=== PATIENT | female | born 1975 | race Caucasian/White ===

== ENCOUNTER 2024-01-23 12:31 | Emergency (ER) | payer BC, SELFPAY ==
[2024-01-23 12:39] VITALS: BP 134/87
--- NOTE | 2024-01-23 13:27 | ED.GENMED ---
History of Present Illness
General
Chief Complaint: Back Pain
Source: patient
Exam Limitations: none
Time Seen by Provider: 01/23/24 13:27
Nursing documentation reviewed up to this point in time: agreed with
History of Present Illness
History of Present Illness:
This is a 48-year-old female with past medical history of joint facet syndrome, herniated disc L5-S1 presents to the emergency department today with concerns of low back pain. Patient states that she has had chronic back pain and has been out of
work as a result of it for the past 5 years. She follows with [facility] [place] [facility]. Patient states she feels as though she was having a flare of her chronic pain this past week and then yesterday, when patient was moving boxes,
she noted acute worsening to her pain. Patient states that the characteristic of her pain is characteristic of the pain she has been having for multiple years but just feels like it is worse today. Patient states that she had no trauma to the area
while moving the boxes, denies any falls. Patient feels the pain across her low back. It does not radiate down the legs. Patient denies any fevers or chills, saddle paresthesias, numbness or tingling in the lower extremities, urinary or fecal
incontinence. Patient states that she then decided to put on her back brace on and take Flexeril, Motrin, and lidocaine patches to to the area but this did not relieve her pain. Patient notes her pain is a lot worse with walking. Patient states
that for chronic pain in the past, she has tried everything and states that she has had spinal cord stimulators put in, has been trialed on a lot of different medications. Patient notes that she has not been on a burst of steroids recently.
Patient is trying to change her spinal pain specialist and states that she will likely have MRI imaging done soon as outpatient.
Review of Systems
Review of Systems
All Other Systems: ROS reviewed and negative except as documented in HPI and ROS
Phy Exam
Physical Exam
Physical Exam:
General: Patient is well appearing and in no acute distress; non-toxic
Skin: Warm and dry, no rashes or lesions
Head: Normocephalic, atraumatic
Eyes: Sclera non-icteric. EOMs intact. PERRLA.
Cardiac: Regular rate and rhythm, no murmurs.
Pulm: Normal respiratory effort
Musculoskeletal: Tenderness to palpation of the para lumbar spinal musculature. No palpable masses. No palpable spasm. Negative straight leg raise bilaterally. No midline spinal tenderness.
Neuro: CN II-XII intact, no focal neurologic deficits. 5 out of 5 strength in bilateral lower extremities. Sensation intact.
Psychiatric: Appropriate mood and affect.
Course
Orders/Labs/Results
Orders:
Orders
01/23/24 13:40
Ketorolac [Toradol] 30 mg IM NOW STA
Vital Signs
Initial and Last Documented VS:
Initial Vital Signs
Temp Pulse Resp BP Pulse Ox
98.0 F 76 18 134/87 99
01/23/24 12:39 01/23/24 12:39 01/23/24 12:39 01/23/24 12:39 01/23/24 12:39
Last Documented Vital Signs
Temp Pulse Resp BP Pulse Ox
98.0 F 75 16 134/87 100
01/23/24 12:39 01/23/24 14:32 01/23/24 14:32 01/23/24 12:39 01/23/24 14:32
MDM/Problems Addressed
Differential Diagnosis Includes:
Differentials include lumbar muscle strain, spinal stenosis, herniated nucleus pulposus, joint facet syndrome
MDM/Problems Addressed:
48-year-old female with a past medical history of herniated disc, joint facet syndrome, chronic back pain patient presents emergency department today with any acute worsening of her low back pain following lifting heavy boxes. Patient reports using
her back brace, Flexeril, and [id number] medications without relief. On physical exam, she has no midline spinal tenderness but does have tenderness palpation of the paraspinal musculature. Her pain is worse with movement. She is negative
straight leg raise, she has no neurologic findings on exam. Initial evaluation, patient was not able to get up from her chair without excruciating pain. Patient was given a shot of Toradol here in the ER which patient states has worked for her in
the past. Patient was then reassessed and while patient was still in pain, she was able to stand up and take a few steps with me and states that she feels more stable without her brace. Considering patient is followed for this chronic pain, she
did not fall, and she has no midline spinal tenderness, I do not feel x-ray imaging is warranted at this time. Discussed my thoughts with patient, did offer x-ray, but patient states that she would rather just follow-up with her spinal specialist.
Did offer referral for Dr. Colunga as well. Considering patient has chronic inflammatory back conditions experiencing a flare of this, I think short burst of prednisone will be beneficial to her. Did offer prescription for a walker for the time
being, patient does not feel this is necessary. Return precautions discussed. Patient stable for discharge.
Chronic conditions affecting care:
n/a
Acute Exacerbation and/or Progression of Chronic Illness:
n/a
*Pulse Oximetry
Patient hypoxic: no
*Critical Care Note
Total Time (30-74mins, 75-104mins- exclusive of procedures): Not Applicable
Data Reviewed
Review of Other/Old Records Reveals: Records (no previous ER physician documentation to review ), Radiology Studies (no prior imaging studies to review ) and Discharge Summary (no hospital discharge summaries)
Source: patient and records
Patient Management
Escalation/DeEscalation of care consider admission/obs:
Admit not indicated, patient stable for discharge. Case and treatment plan discussed with my attending Dr. Pandya.
ED Attending Note
-
Portions of this chart may have been created with voice recognition software.� Occasional wrong word or��sound alike� substitutions may have occurred due to the inherent limitations of voice recognition software.
Discharge Plan
Departure
Patient Disposition: Home (Routine Discharge)
Date of Disposition: 01/23/24
Time of Disposition: 14:08
Patient with high blood pressure during this ER visit?: Yes
Condition: Good
Discharge Problem:
Low back pain
Instructions: Low Back Pain (DC), Prednisone, BLOOD PRESSURE
Prescriptions:
New
prednisone 20 mg tablet
40 mg PO DAILY 5 Days Qty: 10 0RF
Referrals:
Josemanuel Colunga MD [Active] - Call in 1-3 days for appt
Activity Restrictions/Additional Instructions:
Prednisone has been sent to your pharmacy. Please take prednisone as directed.
You will likely need an MRI to better evaluate your symptoms. Please follow-up with her pain specialist. We have also included the number for Dr. Colunga's office, please call the office to schedule an appointment.
PLEASE RETURN TO THE ER IF YOU EXPERIENCE URINARY OR FECAL INCONTINENCE, FEVERS OR CHILLS, NUMBNESS OR TINGLING IN YOUR LOWER EXTREMITIES TRAVELING UPWARDS, CHEST PAIN, SEVERE UPPER BACK PAIN, OR ANY OTHER SIGNS OR SYMPTOMS CONCERNING TO YOU.
Interventions
Interventions:
*Risk Screen - Suicide Last Done: 01/23/24 12:43
*General Assessment Last Done: 01/23/24 12:39
*Neglect/Abuse Screening Last Done: 01/23/24 12:39
*ED COVID-19 Vaccine History Last Done: 01/23/24 13:41
*Nursing Disposition Last Done: 01/23/24 14:32
ED-Musculoskeletal Assessment Last Done: 01/23/24 13:41
Discharge Date and Time
Discharge Date/Time: 01/23/24 14:33
Print Language: SLOVENIAN
[2024-01-23] MEDS: TORADOL 30 MG IM (13:44)
== END 2024-01-23 14:33 | disposition home or self-care (01) ==
LOC: EMR 12:31
PROVIDERS: EMERGENCY PHYSICIAN Emergency Medicine; FAMILY PHYSICIAN Physician Assistant
DX: G89.29 Other chronic pain (principal); M54.50 Low back pain, unspecified; R03.0 Elevated blood-pressure reading, without diagnosis of hypertension
CPT/HCPCS: 99284; 96372